=== PATIENT | female | born 1955 | race Caucasian/White ===

== ENCOUNTER 2017-12-22 02:03 | Inpatient (IN) | payer OTHER ==
[~2017-12-22] VITALS: Ht 175.3 cm; Wt 117.9 kg
[~2017-12-22 02:03] MED LIST: ALTACE10 M2 PO; APRISO0.375 G1 PO; CELEXA40 M1 PO; COREG12.5 M1 PO; LOVASTATIN40 M1 PO; PROAIR HFA8.5 GM INH; PROTONIX40 M4 PO; SYNTHROID100 MCG PO; TERAZOSIN HCL2 M1 PO; TYSABRI300 MG/15; VERAPAMIL ER240 MG PO; VICTOZA 2-0.6 MG/0.1; VITAMIN D1000 UNIT PO; [UNRECOGNIZED DRUG - OTHER] PO
--- NOTE | 2017-12-22 15:57 | Operative Report ---
Operative/Inv Procedure Report Surgery Date: 12/22/17 Name of Procedure: Right total knee replacement. Pre-Operative Diagnosis: Right knee osteoarthritis. Post-Operative Diagnosis: Same. Estimated Blood Loss: 100 mL. Surgeon/Rough Rounder: Cj Allison MD/ALAINA Edouard Anesthesia: block, spinal in addition to left lower extremity regional block. Monitors: EKG, BP, O2 saturation, BIS. IV Fluids: 1200 mL crystalloid. Implants: [employer] Triathlon PS Knee Components 1. Size 4 Posterior Stabilized Femoral Component. 2. Size 4 Tibial Baseplate 3. Size 4 x 11 mm Tibial Bearing Insert. 4. Size 31 x 9 mm symmetric Patella Component. Urine Output: 100 mL. Drains: None. Specimens: Resected portions of bone and cartilage and soft tissues sent to pathology for histopathological documentation and analysis. Microbiology: None. Tourniquet: 57 minutes@350 mmHg. Complications: None known. Condition: Stable. Operative Indication: The patient is a 62-year-old female with a several year history of progressive left knee pain. She was treated initially conservatively and nonoperatively but symptoms over time worsened. With ongoing symptoms felt to no longer be acceptable to the patient with conservative management we did discuss the risks and benefits and expected outcomes of continued attempts at conservative management versus that of operative intervention with total knee replacement. All the patient's questions were answered at length. After discussion of the above and answering all questions the patient did decide that she would like to move forward with knee replacement surgery. Operative/Procedure Note Note: DATE OF SERVICE: 12/22/2017. PREOPERATIVE DIAGNOSIS: Left knee osteoarthritis. POSTOPERATIVE DIAGNOSIS: Same PROCEDURE TITLE: Left total knee arthroplasty. SURGEON: Cj Allison M.D. WOOD ENGRAVER: Cuco Edouard PA-C FINDINGS: 1. Same as preop ANESTHESIA: Spinal plus sedation plus regional block. MONITORS: EKG, BP, O2 saturation, BIS. IV FLUIDS: 1200 mL crystalloid IMPLANTS PLACED: [employer] Triathlon PS Knee Components 1. Size 4 Posterior Stabilized Femoral Component. 2. Size 4 Tibial Baseplate 3. Size 4 x 11 mm Tibial Bearing Insert. 4. Size 31 x 9 mm symmetric Patella Component. URINE OUTPUT: 100 mL EBL: 100 mL ml. DRAINS: Whaley to gravity SPECIMEN: Resected portions of bone and cartilage and soft tissues sent to pathology for histopathological documentation and analysis. TOURNIQUET: 57 minutes@350 mmHg. COMPLICATIONS: None known. PROCEDURE DESCRIPTION/FINDINGS: The left lower extremity regional block was administered by the anesthesia staff in the preop staging area. The patient was then brought to the operating room and placed on the operating room table in the supine position. The patient was then elevated to a seated position at which time a spinal anesthetic was administered by the anesthesia team. A dose of IV antibiotics was given for infection prophylaxis. 1 gram of tranexamic acid was given to help minimize acute blood loss during and immediately after surgery. A well-padded tourniquet was applied to the proximal portion of the left thigh. A Whaley catheter was placed in sterile fashion by the nursing staff. All bony prominences were well padded. The nonsterile portion of the Pretty leg pike was secured to the OR table. The left foot and ankle were wrapped in a plastic barrier drape secured with tape. The left lower extremity was then prepped and draped in the usual sterile fashion. Bony landmarks and a planned midline anterior longitudinal skin incision were marked on the skin using a sterile marker. A non-iodine impregnated occlusive adhesive drape was then applied over and about the knee. The sterile plate for the Pretty leg pike was secured in position on the OR table. The left leg, ankle and foot were then padded and secured to the sterile stirrup for the Pretty leg pike. The extremity was then exsanguinated with an Esmarch bandage and the pneumatic tourniquet was inflated to a pressure of 350 mm Hg. The skin incision was made with a #10 scalpel blade. Sharp dissection continued down through the skin and subcutaneous tissues down to the level of the extensor mechanism. Full-thickness skin with subcutaneous tissue flaps were raised in a medial and lateral direction sharply with a combination of scalpel and Metzenbaum scissors. Hemostasis was achieved using electrocautery. A medial parapatellar arthrotomy was performed and extended proximally into the quadriceps tendon and distally to the medial side of the tibial tubercle. The patella was everted and a synovectomy about the patella was performed sharply with a scalpel. Osteophytes about the articular margin of the patella were excised using rongeurs. The retropatellar fat pad was excised sharply with a scalpel. A synovectomy of the supracondylar region at the anterior distal femur as well as about the medial and lateral gutters of the knee was also performed sharply, achieving hemostasis with electrocautery. Inspection of the patellofemoral articular cartilage showed full-thickness chondral loss and where on the back side of the patella as well as moderate degree chondral loss at the femoral trochlear groove. The patellar thickness measured 21 mm at the thickest portion of the patella using the patellar caliper. The sagittal saw was used to make a provisional transverse resection cut removing the patella facets and articular cartilage. The patella component sizing template was placed onto the cut surface of the patella. In this case we elected to go with a 31 mm diameter symmetric patellar component. This patellar component has a polyethylene thickness of 9 mm. We therefore resected some more patellar bone to equalize as best as possible the amount of bone resected to correlate with the thickness of the patella component. We therefore in this case resected patellar bone until we were left with a cut patella measuring 13 mm thick as measured with the patellar caliper. The patella drill guide was placed onto the cut surface of the patella and medialized slightly to help with patellofemoral tracking. The patellar component fixation holes were drilled through the drill guide with the appropriate drill. The metal protector for the cut surface of the patella was applied and the patella was subluxated laterally out of the way in to the lateral gutter. The knee was flexed and provisional excision of the medial and lateral menisci as well as the cruciate ligaments were performed sharply with a scalpel. Synovectomy of the intercondylar notch of the distal femur was performed sharply as well. Osteophytes about the intercondylar notch were taken down with rongeurs. The intramedullary drill was used to open the distal femur in a distal to proximal direction beginning roughly 1 cm anterior to the femoral attachment site of the posterior cruciate ligament. The intramedullary piero was attached to the femoral alignment guide which was set at 6 degrees of valgus and with the universal resection block also attached for a planned distal femoral resection of 10 millimeters. The intramedullary piero was impacted through the hole in the distal femur and advanced until the attached femoral alignment guide was resting against the most prominent portion of the distal femoral condyles. The femoral alignment guide was then secured in position with pins. The distal resection guide was pinned to the anterior femur. The intramedullary piero and femoral alignment guide were then removed leaving the distal resection guide in place. The modular capture for the sagittal saw was attached and the distal femoral resection cuts were made with the sagittal saw making sure to protect the soft tissues. The distal femoral resection guide was removed and the distal femoral resection cut was checked and was felt to be satisfactory. The femoral sizer was set for 3 degrees of external rotation and then it was placed in to position on the cut surface of the distal femur with the feet of the sizer slipped underneath the femoral condyles. Referencing the transepicondylar axis was not needed in this case to set the rotation of the sizer as there was no significant loss of the posterior femoral condyles. We determined the level of anterior bone resection and femoral sizing in this case to be best with a size 4 as checked with both the femoral stylus and the ander wing checked through both the medial and lateral femoral sizing slots. Once we determined the appropriate level for anterior bone resection, and consequently the proper femoral sizing, the peg drill to make holes for placement of the four in one cutting block was drilled through the EPI holes in the femoral sizing jig. The femoral sizer was removed, and the four in one cutting block was secured to the distal femur with the fixation pegs placed in to the previously drilled holes made through the femoral sizing jig. Retractors were placed for soft tissue protection and the distal femoral resection cuts were made sequentially beginning with the anterior femoral cut, followed by the posterior condyle cuts, followed by the anterior chamfer cut, and finally the posterior chamfer cut. Bone fragments following the cuts were removed. A size 4 PS box cutting guide was placed on to the cut distal femur and positioned optimally in a medial-lateral direction and then pinned in position. The box chisel was inserted in to the slot for the box cutting guide and then impacted with a mallet until it was fully seated. A sagittal saw was then used to make the bone cuts for the medial and lateral edges of the bone to be resected for the box cut. The box cut bone was then removed after freeing it from soft tissue attachments. The box cutting guide was removed and attention was turned to preparation of the proximal tibia. The pickle fork retractor was placed behind the upper central tibial plateau and used to lever the proximal tibia anteriorly. Final resection of the remnants of the medial and lateral menisci and the tibial intercondylar insertion site of the ACL was performed sharply with a scalpel. The intramedullary drill was used to open a hole in the intercondylar region in line with the tibial medullary canal. The tibial intramedullary alignment piero pre-assembled with the tibial resection guide set for a 3 degree posterior slope was placed into the tibial intramedullary canal and advanced until the tibial stylus for a 4 mm bone resection was resting at the lowest level of the medial compartment. The tibial resection guide was then pinned in position. The modular capture for the sagittal saw was attached and then the sagittal saw was used to make the proximal tibia resection cut, making sure to protect the soft tissues with retractors. The cut proximal tibia bone was removed after freeing it up from soft tissue attachments. Osteophytes along the upper margin of the tibia at the level of the bone resection were removed with rongeurs. The tibial tray sizing templates were placed on to the cut surface of the proximal tibia and used to determine the best size for the tibial tray component. In this case a size 4 sizing template fit very nicely. We next removed excess osteophytes from the posterior femoral condyles with an osteotome and removed the bone fragments with a curette. We next impacted a size 4 trial femoral component in to position and visually confirmed it to be well seated and in good position. We next placed a size 4 trial tibial template with a provisional 9 millimeters thickness trial tibial spacer on to the cut surface of the knee and reduced the knee. With the trial tibial and femoral components in place we then reduced the knee to check motion and stability and allow the tibial trial component to rotate naturally with reduction to its' proper orientation. Knee motion was checked and we did confirm the ability to achieve full knee extension. If anything there was perhaps very slight hyperextension of the knee. Knee flexion was checked and was found to be about 130 being limited only by the patient's natural body habitus. Varus and valgus stress testing was performed with the knee in extension and was felt to be acceptable. The upper anterior tibial cortical bone was scored with an electrocautery in line with the notches on the anterior aspect of the tibial trial to set proper rotation of the true tibial components when placed. A size 31 mm trial symmetric patellar component was placed and patellofemoral tracking was assessed. We felt that patellar tracking was excellent and did not require a lateral release. The tibial trial component was then pinned in position after removing the trial spacer. An appropriate size keel punch guide was placed in to the tibial trial component and then the keel punch was impacted using a mallet. The keel punch and guide were removed as was the tibial trial template. The trial femoral and patellar components were also removed. Attention was now directed towards placement of the true components. All cut bony surfaces as well as the soft tissues about the bone were copiously irrigated with a pulsatile lavage system. The irrigated cut surfaces of the bone were dried with lap pads. While this was being performed, the proper sized true femoral, tibial, and patellar components for implantation were opened and cement was mixed per protocol. Once the cement was set to the proper consistency, attention was directed towards cementing the true components in position. Beginning with the tibial component we applied some cement to the cut upper surface of the proximal tibia and also injected some cement down in to the intramedullary canal through the keel punch slot made earlier. The cement on the upper tibia was manually pressed and massaged in to the bone for better interdigitation. A thin layer of cement was also applied to the back side of a size 4 tibial tray component. The tibial tray component was then impacted in to position on to the cut surface of the proximal tibia making sure that the orientation of the keel of the component matched the keel slot cut in to the proximal tibia. Excess cement was removed from around the margins of the proximal tibia with curettes, and pickups and scalpels. The tibial tray was further impacted and further extruded cement from the margins of the base plate was again removed in similar fashion. We next turned our attention to the distal femur where cement was applied with a cement gun and then interdigitated manually in similar fashion to the bone of the anterior and distal femur, leaving the posterior femoral condyle cuts free from cement for the moment. A thin layer of cement was applied to the posterior femoral condyles of a size 4 femoral component and then the femoral component was impacted in to position. In similar fashion as before, excess cement was removed, the femoral component was impacted further and additional excess cement was once again removed. After making sure that there was no bone or cement fragments or any other obstruction to reduction, we reduced the tibial component to the femoral component and maintained the knee fully extended while the fixation cement set up . We next turned our attention to placement of the patellar component. Once again cement was applied and then manually interdigitated in to the fibers of the cut surface of the patella as well as in to the fixation holes for the patellar component. A thin layer of cement was applied to the back surface of a size 31 mm symmetric patellar component and then the patellar component was placed on to the cut surface of the patella with the pegs for the patellar component properly positioned in to the peg holes in the bone. A patellar compression clamp was placed to temporarily secure the patellar component in position. Once again all excess cement was removed and all cement on the components was allowed to set up. We next trialed with the next size up, 11 mm thickness size 4 tibial trial to compare that to the previously trialed 9 mm thickness size 4 tibial trial. The knee was reduced after placement of the trial and then put 2 stability testing and range of motion testing. Once again we had knee range of motion to about 130, again all limited by patient's natural body habitus. Knee extension was full and no longer seem to go into hyperextension. Varus and valgus stress testing of the knee in full extension as well as midrange flexion varus and valgus stress testing of the knee were felt to be acceptable. We next removed the trial tibial insert and irrigated out the knee copiously with the pulsatile lavage. We next inserted a 11 mm thick size 4 tibial bearing component and impacted it until it was locked within the tibial tray component. We checked fixation of the bearing component within the tibial tray and were satisfied. After making sure that there was no bone or cement fragments or any other obstruction to reduction, we reduced the tibial component to the femoral component and maintained the knee fully extended while the fixation cement set up. The knee was put through final range of motion and stability testing, all of which was felt to be acceptable. Patellofemoral tracking was checked again and felt to be satisfactory. With the true components now implanted our attention was directed towards closure. The knee joint and all prosthetic components as well as the soft tissues were irrigated with a pulsatile lavage. Another gram of tranexamic acid was infused by the anesthesia staff prior to dropping the tourniquet. The tourniquet was deflated after tourniquet time of 57 minutes. Hemostasis was achieved with electrocautery and manual pressure. The arthrotomy was repaired using size #1 Vicryl sutures placed in interrupted [id number] fashion. The soft tissues were irrigated once again with the pulsatile lavage. The subcutaneous tissues were closed in layers using #1 Vicryl suture placed in interrupted buried fashion in the deeper subcutaneous tissues. The more superficial subcutaneous tissues were repaired using 2-0 Vicryl placed in interrupted buried fashion as well. The skin margins were then approximated using a skin stapler. The Hemovac drain was connected to the tubing. The wounds were all washed and dried. Adaptic dressing was placed over the Steri- Strips line and about the Hemovac drain tubing exit site in the skin. Gauze dressings followed by abdominal pads were applied over the wound and the Hemovac drain. Webril cotton padding was applied about the knee over the dressings. The extremity was then wrapped with Andres bandages from the toes distally to the upper thigh proximally to hold the dressings in place and to also provide some compression to the knee joint and to the extremity in general postoperatively to minimize swelling of the knee and hopefully minimize venous pooling in the extremity which might result in a DVT. The patient was awakened from sedation and then transferred to a hospital bed and brought to the PACU having tolerated the procedure well. Findings: As per preop. Discharge Disposition: PACU
--- NOTE | 2017-12-22 17:05 | Cons- Medical ---
[place] VELASQUEZ,[facility] 12/22/17 1700: General Information and HPI Consulting Request Date of Consult: 12/22/17 Requested By: Cj Allison MD Reason for Consult: Comanagement of chronic medical disease Source of Information: patient, family, old records Exam Limitations: no limitations History of Present Illness: [place] is a pleasent 62-year-old female with past medical history significant for hypertension, hyperlipidemia, diabetes mellitus on Victoza, MS on Tysabri ( natalizumab) monthly infusion (last dose in November), hypothyroidism, anxiety, ulcerative colitis (on remission). Patient is POD 0 s/p left total knee replacement for DJD osteoarthritis. We received medical consultation for comanagement of her underlying chronic medical diseases. Patient was interviewed after the procedure, she was alert oriented 3 with family at bedside. Patient seemed comfortable, denied any chest pain, palpitation, shortness of breath, abdominal pain nausea or vomiting. Patient reported family history of coronary artery disease and remote history of chest pain for which was investigated by stress test and echocardiogram by Dr. Chet Islas 5 years ago with negative results. Patient follow-up with her primary care physician Dr. Frias who cleared her for the surgery, GI specialist for ulcerative colitis and Dr. Suárez for MS. Patient is active at baseline, uses cane for long distances, does not have any focal neurological deficit from MS, does have relapses especially around holiday time with stress situations. Patient had past surgical history of appendectomy, cholecystectomy, oophorectomy for dermoid cyst, she denied any history of complication with anesthesia. She is to use narcotics/opioids years ago for migraine headache. Patient had uneventful left total knee replacement procedure, she was given a dose of vancomycin, dexamethasone and scopolamine patch. Vital signs reviewed, stable. Allergies/Medications Allergies: Coded Allergies: Sulfa (Sulfonamide Antibiotics) (hives 12/11/17) cefuroxime (From Ceftin) (hives 12/11/17) diphenhydramine (From Benadryl) (tachycardia 12/11/17) iodine (hives 12/11/17) shellfish derived (UNKNOWN REACTION TO SHRIMP 10/18/15) Home Med List: Albuterol Sulfate (Proair Hfa) 90 MCG HFA.AER.AD 2 PUF INH Q4-6 PRN PRN ASTHMA (Reported) Carvedilol (Coreg) 12.5 MG TABLET 1 TAB PO BID CARDIAC (Reported) Cholecalciferol (Vitamin D3) (Vitamin D) 1,000 UNIT TABLET 1 TAB PO DAILY MS (Reported) Citalopram Hydrobromide (Celexa) 40 MG TABLET 1 TAB PO DAILY MOOD (Reported) Levothyroxine Sodium (Synthroid) 100 MCG TABLET 1 TAB PO DAILY REPLACEMENT ( Reported) Liraglutide (Victoza 2-Reuben) 0.6 MG/0.1 ML (18 MG/3 ML) PEN.INJCTR DM (Reported) Lovastatin 40 MG TABLET 1 TAB PO DAILY CHOLESTEROL (Reported) with food Mesalamine (Apriso) 0.375 GRAM CAP.ER.24H 4 CAP PO DAILY ULERATIVE COLITIS ( Reported) Natalizumab (Tysabri) 300 MG/15 ML VIAL MS (Reported) Pantoprazole Sodium (Protonix) 40 MG GRANPKT. GI (Reported) Ramipril (Altace) 10 MG CAPSULE 1 CAP PO DAILY BP (Reported) Terazosin HCl 2 MG CAPSULE 1 CAP PO QPM BP (Reported) Verapamil HCl (Verapamil ER) 240 MG CAP24H.PEL 1 CAP PO DAILY BP (Reported) Vitamin B Complex/Minerals (Sm Stress Formula+Zinc Tablet) 1 EACH TABLET MS ( Reported) Review of Systems Review of Systems Constitutional: Reports: see HPI. Denies: chills, fever, malaise. EENTM: Denies: blurred vision, double vision. Cardiovascular: Denies: chest pain, orthopena, palpitations. Respiratory: Denies: cough, short of breath. GI: Denies: abdominal pain, nausea, bloody stool, changes in stool, vomiting. Genitourinary: Denies: dysuria, frequency, hematuria, hesitation. Skin: Denies: rash. Neurological/Psychological: Denies: headache, numbness. Hematologic/Endocrine: Denies: bruising, bleeding. Past History Surgical History Surgical History: non-contributory Psychosocial History Where Do You Live? Home Who Do You Live With? spouse Services at Home: None Smoking Status: Unknown If Ever Smoked Functional Ability ADLs Independent: dressing, eating, toileting, bathing. Ambulation: independent, cane IADLs Independent: shopping, housework, finances, food prep, telephone, transportation , medication admin. Exam & Diagnostic Data Last 24 Hrs of Vital Signs/I&O Pulse 66 regular Blood pressure 136/77 Saturating 97% on room air Physical Exam General Appearance: well developed/nourished, no apparent distress, alert, awake Head: atraumatic, normal appearance Eyes: Bilateral: normal appearance, PERRL, EOMI. Ears, Nose, Throat: normal pharynx, normal ENT inspection, hearing grossly normal Neck: normal inspection, supple, full range of motion Respiratory: normal breath sounds, chest non-tender, no respiratory distress Cardiovascular: regular rate/rhythm Gastrointestinal: normal bowel sounds, soft, non-tender Extremities: normal inspection, normal capillary refill, no edema Neurologic/Psych: awake, alert, oriented x 3 Last 24 Hrs of Labs/Eb: Laboratory Tests 12/23/17 0650: Anion Gap 11, Estimated GFR > 60, BUN/Creatinine Ratio 16.7, CBC w Diff NO MAN DIFF REQ, RBC 3.74 L, MCV 85.6, MCH 29.2, MCHC 34.1, RDW 14.1, MPV 7.3 L, Gran % 84.7 H, Lymphocytes % 7.9 L, Monocytes % 7.4, Eosinophils % 0, Basophils % 0 , Absolute Granulocytes 9.6 H, Absolute Lymphocytes 0.9 L, Absolute Monocytes 0.8 H, Absolute Eosinophils 0, Absolute Basophils 0 Assessment/Plan Assessment/Plan [place] is a pleasent 62-year-old female with past medical history significant for hypertension, hyperlipidemia, diabetes mellitus on Victoza, MS on Tysabri ( natalizumab) monthly infusion (last dose in November), hypothyroidism, anxiety, ulcerative colitis (on remission). Patient is POD 0 s/p left total knee replacement for DJD osteoarthritis. We received medical consultation for comanagement of her underlying chronic medical diseases. Problem list #Left total knee replacement POD 0 #Hypertension, hyperlipidemia #Diabetes mellitus #MS on Tysabri (natalizumab) in remission #Hypothyroidism #History of ulcerative colitis in remission Recommendation -Vitals every shift -Accu-Chek and NovoLog sliding scale --I checked with the pharmacy and we do not carry Victoza -Continue home medication including Coreg, verapamil, terazosin, ramipril, Synthroid, Celexa, lovastatin, mesalamine, Protonix, ProAir -Repeat CBC and BMP in a.m. -PT evaluation -Pain management per surgical team -Bowel regimen -Okay for IV fluid until patient is able to have oral intake -Anticoagulation per surgical team -DVT prophylaxis Alps at all times Consult Acknowledgment - Thank you for your consult request. Tye Joshi MD 12/22/17 0251: Assessment/Plan Consult Acknowledgment - Thank you for your consult request. Attending Review Statement Attending Statement Attending Statement: examined this patient, discuss w/resident/PA/RAIL OPERATOR, agreed w/resident/PA/RAIL OPERATOR, discussed with family, reviewed EMR data (avail), discussed with nursing, amended to note Attending Assessment/Plan: The patient is a 62 yo female with h/o MS (on monthly Tysabri infusion therapy), HL, DM2, hypothyroidism, ulcerative colitis, and anxiety who is status post elective left TKR for OA of knee. She was seen in the PACU and had no complaints at that time. Consult placed to assist in medical management. She was seen pre- operatively by her PCP Dr. Frias. Physical Exam: HEENT: eyes- PERRLA, EOMI deuce- moist mucosa Neck: no bruits/JVD Chest: clear Cor: RRR nl S1, S2 w/o murm Abd: BS+, soft, NT, obese Ext: s/p left TKR, pulses 2+ Neuro: DEL ANGEL, alert & oriented x 3 Impression/Plan: #S/P Elective Left TKR for OA- doing well post operatively. Plan: Usual post op care as per orthopedics. Anticoagulation as per ortho. #DM2- on Victoza (non-formulary). Hgb A1C is 5 as per patient. Plan: Will follow glucoscans and sliding scale Novolog. #HTN- BP as above on Coreg, Verapamil, Terazosin, Ramipril. Plan: Continue meds and follow BP. #MS- no current symptoms. Skipped IV infusion this month. Followed by Dr. Suárez. Plan: Resume as per Neurology when recovered. Watch for recurrent symptoms. #Hypothyroid- clinically euthyroid. Plan: Continue Levothyroxine. #Ulcerative Colitis- in remission. Followed by Dr. Ramírez. Plan: Continue Mesalamine. #GERD- stable on po Protonix at home. Plan: Substitute Omeprazole in hospital. #Hyperlipidemia- on Lovastatin. Plan: Continue statin equivalent in hospital. #Asthma- uses ProAir prn. Lungs clear at present. Plan: Continue Albuterol MDI prn and incentive spirometry post op. Follow pulse ox.
--- NOTE | 2017-12-22 17:28 | PN- Orthopedic ---
See Addendum Subjective Subjective: post-op check pt in bed in PACU, no complaints, minimal pain. denies paresthesias. No N/V. tolerating diet. Fuchs in place. No fevers/cp/sob Objective Vital Signs and I&Os VSS afebrile Physical Exam: gen- NAD resp- clear cardac-RRR abd-obese, soft, NT ext- left knee in levon-wrap, clean and dry. distal sensory and motor function intact. 2+ DP pulse. Assessment/Plan Assessment/Plan 62yo F with med hx including MS,dm, asthma,htn, depression, hypothyroidism now SP L TKA. stable Pt had left knee block for post-op pain management. PT- WBAT with rolling walker dvt ppx- hsq (eliquis to start 12/24/17) and alps ada diet IVF overnight fuchs to come out in AM dressing change POD2 reg home meds FU AM labs medicine consult pending Core Measures Venous Thromboembolism VTE Risk Factors Surgery No Mechanical VTE Prophylaxis d/t N/A MechProphylax Ordered No VTE Pharm Prophylaxis d/t NA PharmProphylax ordered
--- NOTE | 2017-12-22 17:29 | Admission Core Measures ---
Acute Coronary Syndrome (CM) ACS Core Measures Acute Coronary Syndrome Diagnosis No Congestive Heart Failure (NEW) CHF Core Measures Congestive Heart Failure Diagnosis No Cerebrovascular Accident (NEW) CVA Core Measures CVA/TIA Diagnosis No Venous Thromboembolism VTE Core Rui (View Protocol) VTE Risk Factors Surgery No Mechanical VTE Prophylaxis d/t N/A MechProphylax Ordered No VTE Pharm Prophylaxis d/t NA PharmProphylax ordered Problem List As ranked by this Provider includes Assessment & Plan 1. Unilateral primary osteoarthritis, left knee HOME MEDS Home Med List Albuterol Sulfate (Proair Hfa) 90 MCG HFA.AER.AD 2 PUF INH Q4-6 PRN PRN ASTHMA (Reported) Carvedilol (Coreg) 12.5 MG TABLET 1 TAB PO BID CARDIAC (Reported) Cholecalciferol (Vitamin D3) (Vitamin D) 1,000 UNIT TABLET 1 TAB PO DAILY MS (Reported) Citalopram Hydrobromide (Celexa) 40 MG TABLET 1 TAB PO DAILY MOOD (Reported) Levothyroxine Sodium (Synthroid) 100 MCG TABLET 1 TAB PO DAILY REPLACEMENT ( Reported) Lovastatin 40 MG TABLET 1 TAB PO DAILY CHOLESTEROL (Reported) Mesalamine (Apriso) 0.375 GRAM CAP.ER.24H 4 CAP PO DAILY ULERATIVE COLITIS ( Reported) Ramipril (Altace) 10 MG CAPSULE 1 CAP PO DAILY BP (Reported) Terazosin HCl 2 MG CAPSULE 1 CAP PO QPM BP (Reported) Verapamil HCl (Verapamil ER) 240 MG CAP24H.PEL 1 CAP PO DAILY BP (Reported)
[2017-12-22 17:49] VITALS: BP 122/80
[2017-12-22 19:30] VITALS: BP 120/80
[2017-12-22 21:12] VITALS: BP 112/80
[2017-12-23 03:30] VITALS: BP 136/76
--- NOTE | 2017-12-23 07:47 | PN- Orthopedic ---
See Addendum Subjective Subjective: FEELING OK, SOME PAIN ONCE BLOCK WORN OFF. no n/v/cp/sob. awaiting pt eval Objective Vital Signs and I&Os Vital Signs Date Time Temp Pulse Resp B/P B/P Pulse O2 O2 Flow FiO2 Mean Ox Delivery Rate 12/23 0330 97.9 79 20 136/76 94 Nasal 2.0L Cannula 12/23 0000 94 Nasal 2.0L Cannula 12/22 2200 Nasal 2.0L Cannula 12/23 2111 97.8 79 18 112/80 94 Room Air 12/22 2110 79 112/80 12/22 2013 77 120/80 12/22 1930 98.7 88 20 120/80 92 Room Air 12/22 1749 98.1 67 18 122/80 94 Room Air Intake & Output 12/23 0800 12/23 0000 12/22 1600 12/22 0800 12/22 0000 12/21 1600 Intake Total 1200 Output Total 300 Balance 900 Intake, IV 300 Intake, Oral 900 Output, Urine 300 Patient 260 lb Weight Weight Reported by Patient Measurement Method Physical Exam: gen- nad card- s1s2 pulm- no audible wheeze abd- obese soft nt ext- lle wrapped in levon- cdi, palp dp, gross sensate intact bl le, +dorsi/ plantarflexion bl Assessment/Plan Assessment/Plan A- 62F POD1 sp L TKR, stable, awating pt eval. P- prn pain meds jef madera this am, dtv oob, wbat, pt hep sq- elequis to start thurs am dc planning Core Measures Venous Thromboembolism VTE Risk Factors Surgery No Mechanical VTE Prophylaxis d/t N/A MechProphylax Ordered No VTE Pharm Prophylaxis d/t NA PharmProphylax ordered
[2017-12-23 08:17] LABS: ABSOLUTE BASOPHIL COUNT 0 /CUMM (0.0-0.2); ABSOLUTE EOSINOPHIL COUNT 0 /CUMM (0.0-0.7); ABSOLUTE GRANULOCYTE CT 9.6 /CUMM (1.4-6.5); ABSOLUTE LYMPH COUNT 0.9 /CUMM (1.2-3.4); ABSOLUTE MONOCYTE COUNT 0.8 /CUMM (0.10-0.60); BASOPHIL % 0 % (0.0-2.0); EOSINOPHIL % 0 % (0-5); MEAN CORPUSCULAR HGB 29.2 PG (27.0-31.0); MEAN CORPUSCULAR HGB CONC 34.1 G/DL (33.0-37.0); MEAN CORPUSCULAR VOLUME 85.6 FL (81.0-99.0); MEAN PLATELET VOLUME 7.3 FL (7.4-10.4); PLATELET COUNT 241 /CUMM (130-400); RBC DISTRIBUTION WIDTH 14.1 % (11.5-14.5); RED BLOOD CELL CT 3.74 /CUMM (4.20-5.40); WHITE BLOOD CELL COUNT 11.4 /CUMM (4.8-10.8)
--- NOTE | 2017-12-23 08:19 | PN- Medicine Consult ---
See Addendum Assessment/PlanMedical Consult Assessment/Plan Assessment: This is a 62-year-old female with past medical history significant for hypertension, hyperlipidemia, diabetes mellitus on Victoza, MS on Tysabri ( natalizumab) monthly infusion (last dose in November), hypothyroidism, anxiety, ulcerative colitis (on remission). Patient is POD 1 s/p left total knee replacement for DJD osteoarthritis. We received medical consultation for comanagement of her underlying chronic medical diseases. Problem list #Left total knee replacement POD 1 #Hypertension, hyperlipidemia #Diabetes mellitus #MS on Tysabri (natalizumab) in remission #Hypothyroidism #History of ulcerative colitis in remission Plan: -C/w Accu-Chek and NovoLog sliding scale -BG levels within an acceptable range. -Continue home medication including Coreg, verapamil, terazosin, ramipril, Synthroid, Celexa, lovastatin, mesalamine, Protonix, ProAir -PT evaluation -Pain management per surgical team -Bowel regimen -Okay for IV fluid until patient is able to have oral intake -Anticoagulation per surgical team -DVT prophylaxis Alps at all times Case to be discussed with attending Dr. Joshi. Please refer to his addendum for further recs. Problem List: 1. Unilateral primary osteoarthritis, left knee Subjective Subjective: The patient was seen and examined. Offers no complaints. Denies any headache, n/ v/abdominal pain, CP, SOB. VSS. No events reported. Review of Systems Constitutional: Denies: see HPI. Objective Last 24 Hrs of Vital Signs/I&O Vital Signs Date Time Temp Pulse Resp B/P B/P Pulse O2 O2 Flow FiO2 Mean Ox Delivery Rate 12/23 820 79 124/72 12/23 08 79 124/72 12/23 0330 97.9 79 20 136/76 94 Nasal 2.0L Cannula 12/23 0000 94 Nasal 2.0L Cannula 12/22 2200 Nasal 2.0L Cannula 12/23 2111 97.8 79 18 112/80 94 Room Air 12/220 79 112/80 12/22 2013 77 120/80 12/22 1930 98.7 88 20 120/80 92 Room Air 12/22 1749 98.1 67 18 122/80 94 Room Air Intake & Output 12/23 1600 12/23 0800 12/23 0000 Intake Total 1200 Output Total 550 300 Balance -550 900 Intake, IV 300 Intake, Oral 900 Number 0 Bowel Movements Output, Urine 550 300 Patient 260 lb 260 lb Weight Weight Reported by Patient Reported by Patient Measurement Method Physical Exam General Appearance: no apparent distress, alert, awake Other Physical Findings: Head: atraumatic, normal appearance Eyes:Bilateral: normal appearance, PERRL, EOMI. Ears, Nose, Throat: normal pharynx, normal ENT inspection, hearing grossly normal Neck: normal inspection, supple, full range of motion Respiratory: normal breath sounds, chest non-tender, no respiratory distress Cardiovascular: regular rate/rhythm Gastrointestinal: normal bowel sounds, soft, non-tender Extremities: normal inspection, normal capillary refill, no edema Neurologic/Psych: awake, alert, oriented x 3 Current Medications: Current Medications Sig/Emanuel Start time Last Medication Dose Route Stop Time Status Admin Acetaminophen 1,000 MG .STK-MED ONE 12/22 1226 DC IV 12/22 1227 Acetaminophen 650 MG ONCE 12/22 0000 DC PO 12/22 2359 Albuterol Sulfate 2 PUF Q4-6 PRN PRN 12/22 1745 AC INH Apixaban 2.5 MG BID 12/24 0900 AC PO Apixaban 2.5 MG BID 12/23 0900 DC PO Atorvastatin Calcium 10 MG 1700 12/22 1700 AC 12/22 PO 2014 Carvedilol 12.5 MG BID 12/22 2099 AC 12/23 PO 0821 Citalopram 40 MG 12/22 AC 12/22 Hydrobromide PO 2014 Dexamethasone 10 MG ONCE 12/22 0000 DC IV 12/22 2359 Docusate Sodium 100 MG DAILY NEEDED PRN 12/22 1745 AC PO Doxazosin Mesylate 1 MG AT BEDTIME 12/22 2099 AC 12/22 PO 2014 Fentanyl Citrate 100 MCG .STK-MED ONE 12/22 1226 DC IM 12/22 1227 Gabapentin 300 MG ONCE 12/22 0000 DC PO 12/22 2359 Heparin Sodium 5,000 UNIT Q8 12/22 2200 AC 12/23 (Porcine) SC 0608 Hydromorphone HCl 2 MG .STK-MED ONE 12/22 1626 DC IM 12/22 1627 Insulin Aspart 0 AT BEDTIME 12/23 2100 CAN SC Insulin Human Regular 0 TIDAC/HS 12/22 2100 AC 12/23 SC 0821 Levothyroxine Sodium 0.1 MG DAILY AC 12/23 0600 AC 12/23 PO 0609 Lisinopril 10 MG DAILY 12/23 899 AC 12/23 PO 0819 Mesalamine 1.5 GM DAILY 12/23 899 AC 12/23 PO 0821 Midazolam HCl 2 MG .STK-MED ONE 12/22 1226 DC IM 12/22 1227 Midazolam HCl 0 .STK-MED ONE 12/22 1121 DC .ROUTE Morphine Sulfate 2 MG Q3P PRN 12/24 799 AC IV Morphine Sulfate 2 MG Q3P PRN 12/22 1745 DC IV Morphine Sulfate 4 MG Q3P PRN 12/22 1745 DC IV Morphine Sulfate 10 MG .STK-MED ONE 12/22 1226 DC IV 12/22 1227 Non-Formulary 0.6 UNIT SEE ADMIN CRITERIA 12/22 174 CAN Medication ANY Omeprazole 40 MG DAILY AC 12/23 699 AC 12/23 PO 0608 Ondansetron HCl 4 MG Q6P PRN 12/22 1745 AC IV Oxycodone HCl 10 MG ONCE 12/22 0000 DC PO 12/22 2359 Oxycodone/ 1 TAB Q4P PRN 12/22 1745 AC 12/23 Acetaminophen PO 0125 Oxycodone/ 2 TAB Q4P PRN 12/22 1745 AC 12/23 Acetaminophen PO 0817 Polyethylene Glycol 17 GM DAILY NEEDED PRN 12/22 1745 AC PO Scopolamine HBr 1 PAT ONCE 12/22 0000 DC TOP 12/22 2359 Senna/Docusate Sodium 2 TAB AT BEDTIME NEED.. 12/22 1745 AC PO Sodium Chloride 1,000 ML .[id number] 12/22 1745 DC 12/22 IV 1851 Tranexamic Acid 2,000 MG .STK-MED ONE 12/22 1337 DC IV 12/22 1338 Vancomycin HCl 1,750 MG ONCE ONE 12/22 2345 DC 12/22 Sodium Chloride 500 ML IV 12/23 0144 2256 Vancomycin HCl 1,750 MG ONCE 12/22 0000 DC Sodium Chloride 500 ML IV 12/22 2359 Verapamil HCl 240 MG 2100 12/22 2100 AC 12/22 PO 2110 Results Last 24 Hrs Lab/Eb Results: Laboratory Tests 12/23/17 0650: Anion Gap 11, Estimated GFR > 60, BUN/Creatinine Ratio 16.7, CBC w Diff Pending, WBC Pending, RBC Pending, Hgb Pending, Hct Pending, MCV Pending, MCH Pending, MCHC Pending, RDW Pending, Plt Count Pending, MPV Pending, Gran % Pending, Lymphocytes % Pending, Monocytes % Pending, Eosinophils % Pending, Basophils % Pending, Absolute Granulocytes Pending, Absolute Lymphocytes Pending, Absolute Monocytes Pending, Absolute Eosinophils Pending, Absolute Basophils Pending Microbiology 12/22 1315 URINE ROUT: Urine Culture - RES
[2017-12-23 09:16] LABS: GRANULOCYTE % 84.7 % (42.2-75.2)
[2017-12-23] MEDS ORDERED: RW (12:20)
[2017-12-23 14:05] VITALS: BP 140/70
[2017-12-23 22:49] VITALS: BP 156/78
[2017-12-24 06:20] VITALS: BP 142/78
--- NOTE | 2017-12-24 08:05 | PN- Medicine Consult ---
See Addendum Assessment/PlanMedical Consult Assessment/Plan Assessment: This is a 62-year-old female with past medical history significant for hypertension, hyperlipidemia, diabetes mellitus on Victoza, MS on Tysabri ( natalizumab) monthly infusion (last dose in November), hypothyroidism, anxiety, ulcerative colitis (on remission). Patient is POD 2 s/p left total knee replacement for DJD osteoarthritis. We received medical consultation for comanagement of her underlying chronic medical diseases. Problem list #Left total knee replacement POD 2 #Hypertension, hyperlipidemia #Diabetes mellitus #MS on Tysabri (natalizumab) in remission #Hypothyroidism #History of ulcerative colitis in remission Plan: -Monitor BG levels and c/w current insuling regimen -Continue home medication including Coreg, verapamil, terazosin, ramipril, Synthroid, Celexa, lovastatin, mesalamine, Protonix, ProAir -PT evaluation -Pain management per surgical team -Bowel regimen -Anticoagulation per surgical team -DVT prophylaxis Alps at all times Case to be discussed with attending Dr. Joshi. Please refer to his addendum for further recs. Problem List: 1. Unilateral primary osteoarthritis, left knee Subjective Subjective: The patient was seen and examined. The patient offers no complaints. The patient denies any headache, n/v/abdominal pain, CP, SOB. VSS. No events reported. Review of Systems Constitutional: Reports: no symptoms. Objective Last 24 Hrs of Vital Signs/I&O Vital Signs Date Time Temp Pulse Resp B/P B/P Pulse O2 O2 Flow FiO2 Mean Ox Delivery Rate 12/24 0826 72 126/70 12/24 0826 72 126/70 12/24 0620 98.8 75 20 142/78 95 Room Air 12/23 2249 99.1 78 20 156/78 96 Room Air 12/23 2153 78 136/78 12/23 2153 78 136/78 12/23 1405 98.4 68 20 140/70 95 Room Air Intake & Output 12/24 1600 12/24 0800 12/24 0000 Intake Total 200 100 Output Total 350 300 Balance -150 -200 Intake, Oral 200 100 Output, Urine 350 300 Physical Exam General Appearance: no apparent distress, alert, awake Other Physical Findings: Head: atraumatic, normal appearance Eyes:Bilateral: normal appearance, PERRL, EOMI. Ears, Nose, Throat: normal pharynx, normal ENT inspection, hearing grossly normal Neck: normal inspection, supple, full range of motion Respiratory: normal breath sounds, chest non-tender, no respiratory distress Cardiovascular: regular rate/rhythm Gastrointestinal: normal bowel sounds, soft, non-tender Extremities: normal inspection, normal capillary refill, no edema Neurologic/Psych: awake, alert, oriented x 3 Current Medications: Current Medications Sig/Emanuel Start time Last Medication Dose Route Stop Time Status Admin Albuterol Sulfate 2 PUF Q4-6 PRN PRN 12/22 1745 AC INH Apixaban 2.5 MG BID 12/24 899 AC 12/24 PO 0826 Atorvastatin Calcium 10 MG 1700 12/22 1700 AC 12/23 PO 1723 Carvedilol 12.5 MG BID 12/22 2099 AC 12/24 PO 08 Citalopram 40 MG 12/22 AC 12/23 Hydrobromide PO 2153 Diazepam 5 MG TID PRN 12/23 1245 AC 12/23 PO 2157 Docusate Sodium 100 MG BID 12/23 2099 AC 12/24 PO 0826 Docusate Sodium 100 MG DAILY NEEDED PRN 12/22 1745 DC PO Doxazosin Mesylate 1 MG AT BEDTIME 12/22 2099 AC 12/23 PO 2153 Heparin Sodium 5,000 UNIT Q8 12/22 220 DC 12/24 (Porcine) SC 0604 Insulin Human Regular 4 UNITS .STK-MED ONE 12/23 1217 DC IV 12/23 1218 Insulin Human Regular 0 TIDAC/HS 12/22 2099 AC 12/24 SC 0825 Levothyroxine Sodium 0.1 MG DAILY AC 12/23 699 AC 12/24 PO 0604 Lisinopril 10 MG DAILY 12/23 899 AC 12/24 PO 0826 Mesalamine 1.5 GM DAILY 12/23 899 AC 12/24 PO 0825 Morphine Sulfate 2 MG Q3P PRN 12/24 799 AC 12/23 IV 1504 Omeprazole 40 MG DAILY AC 12/23 699 AC 12/24 PO 0604 Ondansetron HCl 4 MG Q6P PRN 12/22 1745 AC IV Oxycodone/ 1 TAB Q4P PRN 12/22 1745 AC 12/23 Acetaminophen PO 0125 Oxycodone/ 2 TAB Q4P PRN 12/22 174 AC 12/24 Acetaminophen PO 0608 Patient Medication 1 ED ONE ONE 12/23 1230 DC Teaching ED 12/23 1231 Polyethylene Glycol 17 GM DAILY NEEDED PRN 12/22 174 AC PO Senna/Docusate Sodium 2 TAB AT BEDTIME NEED.. 12/22 174 AC PO Verapamil HCl 240 MG 2100 12/22 2100 AC 12/23 PO 2153 Results Last 24 Hrs Lab/Eb Results: .
--- NOTE | 2017-12-24 08:38 | PN- Orthopedic ---
Subjective Subjective: Pain is controlled better on Percocet and Valium, spasms have improved. Still in moderate pain with motion and attempting to ambulate. She does not feel safe going home at this time, she has stairs to manage and getting out of bed is difficult for her. She denies any fever or flulike illness. She is tolerating a diet Objective Vital Signs and I&Os Vital Signs Date Time Temp Pulse Resp B/P B/P Pulse O2 O2 Flow FiO2 Mean Ox Delivery Rate 12/24 08 72 126/70 12/24 0826 72 126/70 12/24 0620 98.8 75 20 142/78 95 Room Air 12/23 2249 99.1 78 20 156/78 96 Room Air 12/23 2153 78 136/78 12/23 2153 78 136/78 12/23 1405 98.4 68 20 140/70 95 Room Air Intake & Output 12/24 1600 12/24 0800 12/24 0000 12/23 1600 12/23 0800 12/23 0000 Intake Total 200 358 913 3502 Output Total 350 300 650 550 300 Balance -150 -200 120 -550 900 Intake, IV 150 300 Intake, Oral 200 100 620 900 Number 0 0 Bowel Movements Output, Urine 350 300 650 550 300 Patient 260 lb 260 lb Weight Weight Reported by Patient Reported by Patient Measurement Method Physical Exam: Well-developed well-nourished no apparent distress. HEENT: Atraumatic, extraocular motion intact Neck: Supple, no lymphadenopathy Respiratory: No respiratory distress Extremities: No edema LEFT lower extremity dressing in place, Incision line is clean dry and intact . No signs of infection. Mild joint effusion Range of motion is 0-45. Dressing changed, dry sterile dressing applied Compression wrap in place. ALPS in place Neurovascularly intact distally Bilateral calves are supple, nontender. Neuro: Alert and oriented x3 Psych: Mood affect normal, normal memory normal judgment. Skin: Warm and dry, no rash on exposed skin Results Last 48 Hours of Labs: Laboratory Tests 12/23 0650 Chemistry Sodium (137 - 145 mmol/L) 139 Potassium (3.5 - 5.1 mmol/L) 4.2 Chloride (98 - 107 mmol/L) 105 Carbon Dioxide (22 - 30 mmol/L) 23 Anion Gap (5 - 16) 11 BUN (7 - 17 mg/dL) 15 Creatinine (0.5 - 1.0 mg/dL) 0.9 Estimated GFR (>60 ml/min) > 60 BUN/Creatinine Ratio (7 - 25 %) 16.7 Hematology CBC w Diff NO MAN DIFF REQ WBC (4.8 - 10.8 /CUMM) 11.4 H RBC (4.20 - 5.40 /CUMM) 3.74 L Hgb (12.0 - 16.0 G/DL) 10.9 L Hct (37 - 47 %) 32.0 L MCV (81.0 - 99.0 FL) 85.6 MCH (27.0 - 31.0 PG) 29.2 MCHC (33.0 - 37.0 G/DL) 34.1 RDW (11.5 - 14.5 %) 14.1 Plt Count (130 - 400 /CUMM) 241 MPV (7.4 - 10.4 FL) 7.3 L Gran % (42.2 - 75.2 %) 84.7 H Lymphocytes % (20.5 - 51.1 %) 7.9 L Monocytes % (1.7 - 9.3 %) 7.4 Eosinophils % (0 - 5 %) 0 Basophils % (0.0 - 2.0 %) 0 Absolute Granulocytes (1.4 - 6.5 /CUMM) 9.6 H Absolute Lymphocytes (1.2 - 3.4 /CUMM) 0.9 L Absolute Monocytes (0.10 - 0.60 /CUMM) 0.8 H Absolute Eosinophils (0.0 - 0.7 /CUMM) 0 Absolute Basophils (0.0 - 0.2 /CUMM) 0 Assessment/Plan Assessment/Plan Postop day #2 status post left total knee arthroplasty Pain medication as needed. Out of bed Physical therapy, weightbearing as tolerated Regular diet Eliquis for DVT prophylaxis started this morning, discontinue heparin subq ALPS for DVT prophylaxis Regular home meds Dressing changed today, dry sterile dressing daily Plan for discharge tomorrow, hopefully home with VNA services Core Measures Venous Thromboembolism VTE Risk Factors Surgery No Mechanical VTE Prophylaxis d/t N/A MechProphylax Ordered No VTE Pharm Prophylaxis d/t NA PharmProphylax ordered
--- NOTE | 2017-12-24 10:18 | RADIOLOGY REPORT ---
EXAMINATION: XR KNEE, LEFT CLINICAL INFORMATION: Status post left total knee arthroplasty. COMPARISON: None TECHNIQUE: 2 of the left knee. FINDINGS: Prosthetic components of the left total knee arthroplasty are appropriately aligned. No periprosthetic fracture. Gas from recent surgery is present in the joint and surrounding soft tissues. A joint effusion is present. IMPRESSION: Immediate postsurgical changes of total left knee arthroplasty showing intact hardware and satisfactory alignment.
--- NOTE | 2017-12-24 11:03 | Surgical Discharge Summary ---
Visit Information Visit Dates Admission Date: 12/22/17 Discharge Date: 12/25/17 History of Present Illness Chief Complaint: Left knee pain secondary to osteoarthritis Medical History Blood Transfusion Hx: No Neurological: migraine, multiple sclerosis, peripheral neuropathy EENT: hearing loss Cardiovascular: hypertension, hyperlipidemia Respiratory: asthma Gastrointestinal: diverticulitis, ulcerative colitis Hepatic: NONE Renal: NONE Musculoskeletal: osteoarthritis Psychiatric: anxiety Endocrine: diabetes, hypothyroidism Blood Disorders: anemia Cancer(s): NONE [employer]/Reproductive: NONE History of MRSA: No History of VRE: No History of CDIFF: No Isolation History: Standard Surgical History Pertinent Surgical History: non-contributory Psychosocial History Where Do You Live? Home Who Do You Live With? Family Services at Home: None What is Your Primary Language? Prydeinig Review of Systems: See HPI Hospital Course Course Attending Physician: Cj Alliosn MD Primary Care Physician: Joe Frias MD Hospital Course: Patient underwent left total knee arthroplasty without complications. She was subsequently admitted for continued physical therapy and rehabilitation as well as monitoring after surgery. Her diet was advanced, her pain was well managed, she received therapy twice per day and did fairly well. Laboratory values are stable and she is afebrile. She was placed on anticoagulation for DVT prophylaxis and perioperative antibiotics for infectious prophylaxis there are no signs of infection or postoperative complications. She was discharged in stable condition having tolerated the procedure well and postoperative course well without complications . Complications: None Allergies: Coded Allergies: Sulfa (Sulfonamide Antibiotics) (hives 12/11/17) cefuroxime (From Ceftin) (hives 12/11/17) diphenhydramine (From Benadryl) (tachycardia 12/11/17) iodine (hives 12/11/17) shellfish derived (UNKNOWN REACTION TO SHRIMP 10/18/15) Disposition Summary Disposition Principal Diagnosis: Primary left knee unilateral osteoarthritis Additional Diagnosis: Same plus status post left total knee arthroplasty Discharge Disposition: home health services Discharge Instructions General Discharge Information Code Status: Full Code Patient's Diet: Diabetic diet Patient's Activity: As per total knee protocol Follow-Up Instructions/Appts: staple removal 2 weeks after surgery follow up with in 6 weeks continue Eliquis for DVT prophylaxis Medications at Discharge Discharge Medications: Continue taking these medications: Pantoprazole Sodium (Protonix) 40 MG ISAURA. Citalopram Hydrobromide (Celexa) 40 MG TABLET 1 Tablet ORAL DAILY Carvedilol (Coreg) 12.5 MG TABLET 1 Tablet ORAL TWICE DAILY Terazosin HCl (Terazosin HCl) 2 MG CAPSULE 1 Capsule ORAL Every night Ramipril (Altace) 10 MG CAPSULE 1 Capsule ORAL DAILY Lovastatin (Lovastatin) 40 MG TABLET 1 Tablet ORAL DAILY Instructions: with food Liraglutide (Victoza 2-Reuben) 0.6 MG/0.1 ML (18 MG/3 ML) PEN.INJCTR Mesalamine (Apriso) 0.375 GRAM CAP.ER.24H 4 Capsule ORAL DAILY Verapamil HCl (Verapamil ER) 240 MG CAP24H.PEL 1 Capsule ORAL DAILY Levothyroxine Sodium (Synthroid) 100 MCG TABLET 1 Tablet ORAL DAILY Natalizumab (Tysabri) 300 MG/15 ML VIAL Comments: MONTHLY AT [facility] Cholecalciferol (Vitamin D3) (Vitamin D) 1,000 UNIT TABLET 1 Tablet ORAL DAILY Vitamin B Complex/Minerals (Sm Stress Formula+Zinc Tablet) 1 EACH TABLET Albuterol Sulfate (Proair Hfa) 90 MCG HFA.AER.AD 2 Puff Inhale through mouth EVERY 4-6 HOURS NEEDED as needed for ASTHMA Start taking the following new medications: Apixaban (Eliquis) 2.5 MG TABLET 2.5 Milligram ORAL TWICE DAILY Qty = 60 No Refills Diazepam (Diazepam) 5 MG TABLET 5 Milligram ORAL THREE TIMES DAILY as needed for muscle spasms Qty = 30 No Refills Docusate Sodium (Docusate Sodium) 100 MG CAPSULE 100 Milligram ORAL TWICE DAILY Qty = 14 No Refills Oxycodone HCl/Acetaminophen (Percocet 5-325 MG Tablet) 5 MG-325 MG TABLET 1-2 Tablet ORAL EVERY 4 HOURS NEEDED as needed for PAIN Qty = 36 No Refills Sennosides/Docusate Sodium (Senna Plus Tablet) 8.6 MG-50 MG TABLET 2 Tablet ORAL AT BEDTIME NEEDED as needed for NO BM IN TWO DAYS Qty = 10 No Refills Rolling Walker (Rolling Walker) UNIT Unit SEE INSTRUCTIONS Qty = 1 No Refills Instructions: Use as instructed. Copies To: Rodriguez VELASQUEZ,Joe Tomlin
[2017-12-24] MEDS ORDERED: PERCOCET 5-3251 EACH PO (11:05)
[2017-12-24] MEDS ORDERED: DIAZEPAM5 M1 PO (11:05)
[2017-12-24] MEDS ORDERED: SENNA PLUS TAB1 EACH PO (11:05)
[2017-12-24] MEDS ORDERED: ELIQUIS2.5 M1 PO (11:05)
[2017-12-24] MEDS ORDERED: DOCUSATE SODIU100 M3 PO (11:05)
--- NOTE | 2017-12-24 11:10 | Patient Discharge Instructions ---
Discharge Instructions General Discharge Information You were seen/treated for: Left knee osteoarthritis. Status post left total knee arthroplasty You had these procedures: Left total knee arthroplasty Watch for these problems: Drainage from the wound, worsening pain, redness, swelling, inability to bend the knee, inability to weight-bear or walk, fever or flulike illness, worsening swelling of the leg Call Surgeon to remove: Lin (2 WEEKS) Do not soak the wound: Yes No bath, but you may shower: Yes Other wound care: Keep dressing covered while in shower, change dressings when wet Special Instructions: Call the office with any concerns of fever greater than 101.5. Large amounts of discharge or drainage from the wound or inability to bear weight on your operative side. You may weight-bear as tolerated. Activity as tolerated. Range of motion as tolerated. Do not put pillows behind the knee, use a pillow under the heel to ensure your are in full knee extension. Keep the dressing dry as possible, you may shower with the dressing in place however, do not take a bath or submerge the wound in water as this will increase your chance of infection. Change the dressings after the shower. You may use dry gauze and tape or large Band-Aids Do not apply any ointments to the wound. Due to a risk of blood clots you'll need to be on ELIQUIS twice a day for the next 4 weeks. Take pain medication as directed. Apply ice as needed for 20 minutes every hour for the first few days. Please take Colace and/or MiraLAX [id number] to avoid constipation while you're on narcotic pain medication. Diet Continue normal diet: Yes Activity Full Activity/No Limits: No Activity Self Limited: Yes Pounds, do NOT lift more than: 10 Activity Limited to: Weight bear as tolerated Acute Coronary Syndrome Inclusion Criteria At DC or during hospital stay patient has or had the following: ACS DIAGNOSIS No Discharge Core Measures Meds if any: Prescribed or Continued at Discharge Meds if any: NOT Prescribed or Continued at Discharge Congestive Heart Failure Inclusion Criteria At DC or during hospital stay patient has or had the following: CHF DIAGNOSIS No Discharge Core Measures Meds if any: Prescribed or Continued at Discharge Meds if any: NOT Prescribed or Continued at Discharge Cerebrovascular accident Inclusion Criteria At DC or during hospital stay patient has or had the following: CVA/TIA Diagnosis No Discharge Core Measures Meds if any: Prescribed or Continued at Discharge Meds if any: NOT Prescribed or Continued at Discharge Venous thromboembolism Inclusion Criteria VTE Diagnosis No VTE Type NONE VTE Confirmed by (Test) NONE Discharge Core Measures - Per Current guidelines, there needs to be overlap - treatment for the first 5 days of Warfarin therapy. - If discharged on Warfarin prior to 5 days of - overlap therapy, the patient will need to be - assessed for post discharge needs including - *Post discharge parental anticoagulation - *Warfarin and/or parental anticoagulation education - *Follow up date to check INR post discharge At least 5 days overlap therapy as Inpatient No Meds if any: Prescribed or Continued at Discharge Note: Overlap Therapy is Warfarin and Anticoagulant Meds if any: NOT Prescribed or Continued at Discharge
[2017-12-24 14:36] VITALS: BP 130/80
[2017-12-24 22:30] VITALS: BP 140/80
[2017-12-25 06:45] VITALS: BP 142/80
[2017-12-25 08:00] VITALS: BP 138/76
--- NOTE | 2017-12-25 08:12 | PN- Orthopedic ---
Subjective Subjective: Reports pain controlled with staggering percocet and valium. Out of bed with rolling walker without difficulty. She accomplished stairs yesterday. No dizziness. No shortness of breath. No chest pains. Voiding well. Passing flatus. No bm yet. Tolerating diet. Anticipates discharge to home today. She would like her prescriptions sent to [facility] in [place]. Objective Vital Signs and I&Os Vital Signs Date Time Temp Pulse Resp B/P B/P Pulse O2 O2 Flow FiO2 Mean Ox Delivery Rate 12/26 799 64 138/76 12/26 799 64 138/76 12/25 0645 97.9 76 20 142/80 96 Room Air 12/24 2230 99.2 84 18 140/80 93 Room Air 12/24 210 84 140/80 12/24 210 84 140/80 12/24 1436 98.5 70 20 130/80 91 Room Air 12/24 08 72 126/70 12/24 08 72 126/70 Intake & Output 12/25 1600 12/25 0000 12/24 1600 12/24 0000 Intake Total 100 100 480 200 100 Output Total 500 700 200 350 300 Balance -400 -600 280 -150 -200 Intake, Oral 100 100 480 200 100 Output, Urine 500 700 200 350 300 Physical Exam: General - alert & oriented x 3. comfortable. no acute distress. Lungs - clear bilaterally. no w/r/r. Cardiac - s1s2. reg. Abdomen - soft. nontender. Extremities - warm bilaterally. left knee dressing changed. incision well approximated with gomez. no erythema. no exudates. calves soft and nontender b /l. nvi. Current Medications: Current Medications Sig/Emanuel Start time Last Medication Dose Route Stop Time Status Admin Albuterol Sulfate 2 PUF Q4-6 PRN PRN 12/22 1745 AC INH Apixaban 2.5 MG BID 12/24 0900 AC 12/25 PO 0800 Atorvastatin Calcium 10 MG 1700 12/22 1700 AC 12/24 PO 1723 Carvedilol 12.5 MG BID 12/22 2100 AC 12/25 PO 0800 Citalopram 40 MG 2100 12/22 2100 AC 12/24 Hydrobromide PO 2102 Diazepam 5 MG TID PRN 12/23 1245 AC 12/24 PO 1139 Docusate Sodium 100 MG BID 05/09 2100 AC 12/25 PO 0800 Doxazosin Mesylate 1 MG AT BEDTIME 12/22 2099 AC 12/24 PO 2103 Heparin Sodium 5,000 UNIT Q8 12/22 2200 DC 12/24 (Porcine) SC 0604 Insulin Human Regular 2 UNITS .STK-MED ONE 12/24 1713 DC IV 12/24 1714 Insulin Human Regular 2 UNITS .STK-MED ONE 12/24 1153 DC IV 12/24 1154 Insulin Human Regular 2 UNITS .STK-MED ONE 12/24 0812 DC IV 12/24 0813 Insulin Human Regular 0 TIDAC/HS 12/22 2099 AC 12/25 SC 0751 Levothyroxine Sodium 0.1 MG DAILY AC 12/23 07 AC 12/25 PO 0555 Lisinopril 10 MG DAILY 12/23 899 AC 12/25 PO 0800 Mesalamine 1.5 GM DAILY 12/23 899 AC 12/25 PO 0801 Morphine Sulfate 2 MG Q3P PRN 12/23 08 AC 12/23 IV 1504 Omeprazole 40 MG DAILY AC 12/23 07 AC 12/25 PO 0554 Ondansetron HCl 4 MG Q6P PRN 12/22 1745 AC IV Oxycodone/ 1 TAB Q4P PRN 12/22 1745 AC 12/24 Acetaminophen PO 1315 Oxycodone/ 2 TAB Q4P PRN 12/22 1745 AC 12/25 Acetaminophen PO 0751 Patient Medication 1 ED ONE ONE 12/24 1645 OH Teaching ED 12/24 1646 Polyethylene Glycol 17 GM DAILY NEEDED PRN 12/22 1745 AC PO Senna/Docusate Sodium 2 TAB AT BEDTIME NEED.. 12/22 1745 AC PO Verapamil HCl 240 MG 2100 12/22 2099 AC 12/24 PO 2103 Assessment/Plan Assessment/Plan This 62 year old female with hx dm, htn, asthma, hypothyroidism, depression, UC, hx MS, now POD#3 s/p right total knee replacement for right knee osteoarthritis pain controlled with staggering percocet and valium dressing changed continue PT bowel regime ordered eliquis bid - dvt ppx d/c home with vna today will d/w Core Measures Venous Thromboembolism VTE Risk Factors Surgery No Mechanical VTE Prophylaxis d/t N/A MechProphylax Ordered No VTE Pharm Prophylaxis d/t NA PharmProphylax ordered
[2017-12-25] MEDS ORDERED: PERCOCET 5-3251 EACH PO (09:58)
[2017-12-25] MEDS ORDERED: ELIQUIS2.5 M1 PO (09:58)
[2017-12-25] MEDS ORDERED: DIAZEPAM5 M1 PO (09:58)
[2017-12-25] MEDS ORDERED: SENNA PLUS TAB1 EACH PO (09:58)
[2017-12-25] MEDS ORDERED: DOCUSATE SODIU100 M3 PO (09:58)
--- NOTE | 2017-12-25 22:50 | PN- Att Addend ---
Attending Addendum Attending Brief Note S: The patient was seen this morning prior to discharge. She had some persistent right thigh spasms which were responding to Valium/Percocet alternating doses. Ready for discharge today. O: VS: T 97.9, BP 138/76, R 20, PO 96% RA Physical Exam: Chest- clear Cor- RRR nl S1, S2 w/o murm Abd: BS+, soft, NT Ext: s/p left TKR- no edema Impression/Plan: #S/P Left TKR- doing well today with diminished right leg pain and spasm. Plan: OK to discharge to home today as per orthopedics. Continue anticoagulation as per orthopedics. #DM2- on Victoza (non-formulary). Hgb A1C is 5 as per patient. Plan: Will restart OP meds upon discharge. #HTN- BP as above on Coreg, Verapamil, Terazosin, Ramipril. Plan: Continue meds and follow BP. #MS- no current symptoms. Skipped IV infusion this month. Followed by Dr. Suárez. Plan: Resume as per Neurology when recovered. Watch for recurrent symptoms. #Hypothyroid- clinically euthyroid. Plan: Continue Levothyroxine. #Ulcerative Colitis- in remission. Followed by Dr. Ramírez. Plan: Continue Mesalamine. #GERD- stable on po Protonix at home. Plan: Substitute Omeprazole in hospital. #Hyperlipidemia- on Lovastatin. Plan: Continue statin equivalent in hospital. #Asthma- uses ProAir prn. Lungs clear at present. Plan: Continue Albuterol MDI prn and incentive spirometry post op. Follow pulse ox.
== END 2017-12-25 10:35 | disposition home health service (06) | DRG 470 ==
LOC: SDA 02:03 → 2NA 02:03 → SDA 07:00 → EDBEDREQ 15:48 → ENRESERV 16:49 → ENTRNSPT 17:16 → 2NA 17:31 → CMPTRNSPT 17:42 → ENPENDDIS 12-25 08:07 → ENTRNSPT 12-25 10:02 → EDTRNSPTSTS 12-25 10:32 → EDTRNSPT 12-25 10:32 → 2NA 12-25 10:35 → CMPTRNSPT 12-25 11:20
PROVIDERS: Physician Assistant Surgical
PROC: 0SRD0J9 Replacement of Left Knee Joint with Synthetic Substitute, Cemented, Open Approach (ICD-10-PCS; principal; 2017-12-22)
PROC: 3E0T3BZ Introduction of Anesthetic Agent into Peripheral Nerves and Plexi, Percutaneous Approach (ICD-10-PCS; principal; 2017-12-22)
DX: M17.12 Unilateral primary osteoarthritis, left knee (principal); G35 Multiple sclerosis; K51.90 Ulcerative colitis, unspecified, without complications; E11.9 Type 2 diabetes mellitus without complications; E78.5 Hyperlipidemia, unspecified; F41.9 Anxiety disorder, unspecified; I10 Essential (primary) hypertension; Z79.84 Long term (current) use of oral hypoglycemic drugs; Z88.2 Allergy status to sulfonamides; Z88.8 Allergy status to other drugs, medicaments and biological substances; Z79.51 Long term (current) use of inhaled steroids; E03.9 Hypothyroidism, unspecified; K21.9 Gastro-esophageal reflux disease without esophagitis; J45.909 Unspecified asthma, uncomplicated; Z97.4 Presence of external hearing-aid; E66.9 Obesity, unspecified; Z68.38 Body mass index [BMI] 38.0-38.9, adult; Z90.49 Acquired absence of other specified parts of digestive tract
CPT/HCPCS: 2NAP; 36592; 73560-LT; 82436; 87086; 88305; 97110-GO; 97116-GO; 97161-GP; 97530-GO; C1713; C9290; J0131; J1100; J1644; J1815; J3370; J3490; J7040